=== PATIENT | female | born 1940 | race Caucasian/White ===

== ENCOUNTER 2022-07-22 12:48 | Emergency (ER) | payer MEDICARE, SELFPAY ==
[2022-07-22 12:50] VITALS: BP 126/107; PULSE 61; RESP 18; TEMP 36.2; O2SAT 92; BMI 25.2
--- NOTE | 2022-07-22 13:25 | EDS_ITS ---
HPI HPI - Fall History of Present Illness Chief Complaint: Fall Occured/Mechanism Mechanism/Context: Yes same level fall Pain/Injury Pain Location: head Quality of Pain: Aching Worsened by: Nothing Relieved by: Nothing Associated Symptoms Associated Symptoms: Positive for Loss of consciousness; Negative for Parasthesias, Weakness or Loss of function Length of loss of consciousness: Brief but unknown Narrative Narrative: Patient presents with a fall that occurred today. Patient states he was at the pharmacy picking up a prescription for her cough when she passed out. Patient states she felt lightheaded prior to falling. Patient states she hit the back of her head on a metal counter. Patient states that her only injury is her head. Patient describes it as aching. Patient states nothing makes it worse and nothing makes it better. Patient thinks she may have only been unconscious for a brief time. Patient denies any paresthesias or weakness. [facility] Medical History Non-smoker SVT (supraventricular tachycardia) Syncope Allergy/AdvReac Type Severity Reaction Status Date / Time No Known Allergies Allergy Verified 07/22/22 13:57 Surgical History History of hip replacement Social History Smoking Status: Never smoker ROS ROS ED Constitutional Constitutional ED: Denies chills or fever(s) Eyes Eyes: Denies blurry vision or change in vision ENT ENT ED: Denies rhinorrhea or sore throat Cardiovascular Cardiovascular: Denies chest pain or palpitations Respiratory/Chest Respiratory/Chest: Reports cough; Denies dyspnea Gastrointestinal Gastrointestinal: Denies nausea or vomiting Genitourinary Genitourinary ED: Denies dysuria or hematuria Musculoskeletal Musculoskeletal: Denies back pain or neck pain Integumentary Denies abscess or rash Neurologic Neurologic: Denies headache(s) or weakness Allergic/Immunologic Allergic/Immunologic ED: Denies mouth swelling or urticaria EXAM Physical Exam Const Vital Signs: 07/22/22 12:50 07/22/22 12:56 Temperature 97.2 F L Temperature Source Temporal Pulse Rate 61 Respiratory Rate 18 Respiratory Effort Normal Respiratory Depth Normal Respiratory Pattern Normal Blood Pressure 126/107 H Blood Pressure Mean 113 Pulse Ox 92 Oxygen Delivery Method Room Air Room Air Oxygen Flow Rate (L/min) 93 Positive well nourished and well developed General Appearance ED: well developed HEENT Reports moist mucous membranes HEENT Narrative: There is an 8 cm full-thickness curvilinear laceration over the scalp in the right posterior occipital area. There is moderate gapping of the wound margins. There is no active bleeding noted. There is no bony crepitance or step-off. There are no foreign bodies noted. Eyes PERRL and EOMs intact bilaterally Neck supple and no JVD Resp normal respiratory effort Auscultation: rhonchi throughout (There are few scattered rhonchi) Cardio regular rate, regular rhythm and no murmurs GI normal to inspection, nondistended, normoactive bowel sounds and non-tender Palpation: soft Extremity normal to inspection General Extremety ED: Negative for edema or tenderness General Extremity: Negative for edema Neuro oriented x3, CN's II-XII intact bilaterally, moves all extremities, no focal motor deficits and no sensory deficits noted Sensorium / Orientation: alert Motor Exam: strength 5/5 throughout Psych mental status grossly normal Skin no rashes or lesions noted MDM MDM MDM Narrative Medical decision making narrative: CT scan of the brain was obtained. There is no acute intracranial abnormality. There are chronic involutional changes noted. This was interpreted by the radiologist and reviewed by myself. Patient was given a tetanus booster. The wound was cleaned and irrigated with copious amounts normal saline. The wound was anesthetized 1% plain lidocaine locally. The wound was closed with 14 uma. Patient tolerated the procedure well. Patient was given head injury instructions. Patient was instructed to follow-up with her primary care physician in 5 to 7 days for wound recheck and staple removal. Patient understood and was agreeable with the plan. All questions were answered. Radiography Diagnostic Testing: Clinical Impression(s) from Imaging Studies Brain CT 07/22/22 13:28 IMPRESSION: Chronic involutional changes of the brain. Electronically Signed: Santos Santos MD at 13:57 EST , Procedures Lacerations Occipital scalp: Length: 8 cm Depth: Sub Q Shape: Linear Prep: Sterile Conditions and Chlorhexadine Laceration repair: Irrigated, Lidocaine, Local and Wound explored Irrigated (ml): 100 Number of Sutures/Uma: 14 Suture Information: Simple (Uma) Discharge Plan Triage Chief Complaint: Fall ED Provider: Matthew Schumacher Dx/Rx/DC Orders Clinical Impression: Laceration of occipital scalp, Syncope and collapse, Upper respiratory infection Instructions: ED Head Injury (Adult), ED Laceration Scalp Stitches or [place] Primary Care Provider: Luis Enrique Estrada Referrals: Luis Enrique Estrada MD [Primary Care Provider] - 5-7 Days Disposition Disposition: Home, Self Care
--- NOTE | 2022-07-22 13:28 | CT_ITS ---
STUDY: CT BRAIN WITHOUT CONTRAST REASON FOR EXAM: Female, 82 years old. Head injury and laceration following a fall. Loss of consciousness. RADIATION DOSAGE (If Supplied By Facility): CTDIvol = ( 47.06 ) mGy, DLP = ( 890.33 ) mGycm TECHNIQUE: Transaxial CT imaging of the brain was performed without administration of intravenous contrast material. Individualized dose optimization techniques were used for this CT. COMPARISON: No relevant priors. FINDINGS: Normal soft tissue structures. Normal calvarium. There is mild cerebral atrophy with widening of the extra-axial spaces and ventricular dilatation. There are areas of decreased attenuation within the white matter tracts of the supratentorial brain, consistent with microvascular disease changes. Normal basal ganglia and thalami. Normal brainstem. There is mild cerebellar atrophy. There is no intracranial hemorrhage. There are no findings of an acute ischemic infarction. Atherosclerotic calcification of the vertebral arteries and cavernous portions of the internal carotid arteries bilaterally. Normal visualized paranasal sinuses. CT/Brain/Head without Contrast IMPRESSION: Chronic involutional changes of the brain. Electronically Signed: Santos Santos MD at 13:57 EST ,
[2022-07-22] MEDS: Diphth,Pertuss(Acell),Tet Vac 0.5 ML Vial IM (13:57)
[2022-07-22] MEDS: Lidocaine 1% (20 ml mdv) 20 ML Vial INFILT (13:57)
[2022-07-22 15:53] VITALS: BP 160/76; PULSE 63; RESP 17; O2SAT 94
== END 2022-07-22 15:56 | disposition home or self-care (01) ==
PROVIDERS: Emergency Provider Emergency Medicine; PCP Family Medicine; Visit Provider Emergency Medicine
DX: S01.01XA Laceration without foreign body of scalp, initial encounter (principal); R55 Syncope and collapse; J06.9 Acute upper respiratory infection, unspecified; Z23 Encounter for immunization; W18.30XA Fall on same level, unspecified, initial encounter
CPT/HCPCS: 12004; 70450; 90715; 96372; 99284

== ENCOUNTER 2024-12-30 21:05 | Emergency (ER) | payer MEDICARE, SELFPAY ==
[2024-12-30 21:05] VITALS: BP 199/96; PULSE 80; RESP 18; TEMP 36.4; O2SAT 94; BMI 24.5
--- NOTE | 2024-12-30 21:19 | EX.ED.GENINJ ---
HPI <SALOME Crouch - Last Filed: 12/30/24 21:37> History of Present Illness Chief Complaint: Laceration Narrative Narrative: Patient presenting today with a laceration to her left fourth finger that she got this afternoon while gardening. She was using a garden tool and accidentally hit her finger causing the laceration. last tetanus was July 2022. She is right-handed and denies any other injury. She is not on blood thinners. PFSH <SALOME Crouch - Last Filed: 12/30/24 21:37> [facility] Medical History Non-smoker SVT (supraventricular tachycardia) Syncope Home Medications ?Medication ?Instructions ?Recorded ?Last Taken ?Type cephalexin 500 mg capsule 500 mg PO Q6 #40 CAPSULES 12/30/24 Unknown Rx Allergy/AdvReac Type Severity Reaction Status Date / Time No Known Allergies Allergy Verified 12/30/24 21:08 Surgical History History of hip replacement Social History household members: none Smoking Status: Never smoker ROS <SALOME Crouch - Last Filed: 12/30/24 21:37> ROS ED Constitutional Constitutional ED: Denies chills or fever(s) Cardiovascular Cardiovascular: Denies chest pain Respiratory/Chest Respiratory/Chest: Denies dyspnea Gastrointestinal Gastrointestinal: Denies abdominal pain, nausea or vomiting Musculoskeletal Musculoskeletal: Denies arthralgias or myalgias Integumentary Reports laceration EXAM <SALOME Crouch - Last Filed: 12/30/24 21:37> Physical Exam Const Vital Signs: 12/30/24 21:05 Temperature 97.6 F L Temperature Source Temporal Pulse Rate 80 Respiratory Rate 18 Blood Pressure 199/96 H Blood Pressure Mean 130 Pulse Ox 94 Oxygen Delivery Method Room Air Positive well nourished, well developed and no apparent distress General Appearance ED: well developed HEENT Reports normocephalic and head/scalp atraumatic Mouth ED: Yes moist mucous membranes normal Eyes PERRL and EOMs intact bilaterally Neck full ROM and supple Chest Wall inspection of chest normal Resp normal respiratory effort and clear to auscultation bilaterally Cardio regular rate and regular rhythm Back/Spine normal ROM and normal to inspection Extremity full ROM Extremity Narrative: 1 cm full-thickness linear laceration at the dorsal PIP joint of the left fourth finger, full flexion extension at the MCP, PIP, DIP joints of the left hand. Left radial pulse 2+, good cap refill, sensation intact. Neuro CN's II-XII intact bilaterally, moves all extremities, no focal motor deficits and no sensory deficits noted Sensorium / Orientation: awake and alert Psych mental status grossly normal and thought process normal Skin Skin Narrative: Laceration to the left fourth finger, otherwise no rashes or lesions noted. <Dr. Matthew Schumacher, - Last Filed: 12/30/24 21:50> Physical Exam Const Vital Signs: 12/30/24 21:05 Temperature 97.6 F L Temperature Source Temporal Pulse Rate 80 Respiratory Rate 18 Blood Pressure 199/96 H Blood Pressure Mean 130 Pulse Ox 94 Oxygen Delivery Method Room Air PROC <SALOME Crouch - Last Filed: 12/30/24 21:37> Procedures Lacerations Laceration: Length: 1 cm Depth: Sub Q Shape: Linear Prep: Chlorhexadine Laceration repair: Digital block, Irrigated and Lidocaine Number of Sutures/Uma: 2 Suture Information: Ethilon, Horizontal, Mattress and 4-0 MDM <SALOME Crouch Last Filed: 12/30/24 21:37> [facility] MDM Narrative Medical decision making narrative: Patient presenting today with a laceration to her left fourth finger that she got from a garden tool this afternoon. She has full range of motion to her finger, no tendon laceration. Given it is right over the PIP joint, I do feel that she would benefit from having this sutured. She tolerated procedure well. She will be placed on a course of Keflex to prevent infection. She has a finger splint that she can wear to prevent excessive bending of her finger. Recommended she have sutures removed in 7 days, wound care instructions were discussed with her. She will be discharged home in stable condition. <Dr. Matthew Schumacher DO - Last Filed: 12/30/24 21:50> [facility] History & Record Review Additional record(s) reviewed:: Prior ED visit Treatment and Re-Evaluation Narrative: I have personally performed a face to face assessment of the patient and have reviewed the TAR[facility] Note. I performed a substantive portion of the visit including all aspects of the following. My eason findings include: History: Patient presents with a laceration to her left ring finger that occurred today. Patient states she was doing some gardening and one of her gardening tools cut her left ring finger. Patient states she was wearing gloves. Patient states she cleaned the wound thoroughly. Patient states that the bleeding has been persistent. Patient denies any paresthesias or weakness. Patient thinks her last tetanus was within the last 5 years. Exam: Vital signs are stable except for an elevated blood pressure of 199/96. Patient is afebrile. Patient is in no acute distress. Skin is warm and dry. There is a 1 cm full-thickness linear laceration of the dorsal aspect of the left ring finger over the PIP joint. There is no foreign body noted. There are no tendon lacerations noted. There is mild bleeding noted. Strength is 5/5 in flexion and extension of the MP, PIP, and DIP joints of the left ring finger. Sensation was intact to light touch in all digits. Capillary refills less than 2 seconds in all digits. Medical Decision Making: Patient was advised of the need for laceration repair. Patient is agreeable with this. The wound was closed by the TARAH under my supervision. Patient was given a dose of Keflex here. Patient was given a prescription for Keflex. Patient was instructed to keep the wound clean and dry. Patient was instructed to follow-up with her primary care physician in 7 days for wound recheck and suture removal. Patient understood and was agreeable with the plan. All questions were answered. Discharge Plan Triage Chief Complaint: Laceration ED Midlevel Provider: Destiny Garcia ED Provider: Matthew Schumacher Dx/Rx/DC Orders Clinical Impression: Laceration of left ring finger w/o foreign body w/o damage to nail, Elevated blood pressure reading Instructions: ED Laceration, Hand: All Closures Prescriptions: New cephalexin 500 mg capsule 500 mg PO Q6 Qty: 40 0RF Primary Care Provider: Luis Enrique Estrada Referrals: Luis Enrique Estrada MD [[facility]] - 7 Days for suture removal Print Language: Ecu[place] Disposition Disposition: Home, Self Care Discharge Date/Time: 12/30/24 21:44
[2024-12-30] MEDS: Cephalexin 500 MG Capsule PO (21:41)
[2024-12-30] MEDS: Lidocaine 1% (20 ml mdv) 20 ML Vial 10 ML INFILT (21:41)
== END 2024-12-30 21:44 | disposition home or self-care (01) ==
LOC: ED 21:38
PROVIDERS: Emergency Provider Emergency Medicine; PCP Family Medicine; Visit Provider Emergency Medicine
DX: S61.215A Laceration without foreign body of left ring finger without damage to nail, initial encounter (principal); R03.0 Elevated blood-pressure reading, without diagnosis of hypertension; W27.1XXA Contact with garden tool, initial encounter; Y93.H2 Activity, gardening and landscaping; Z96.649 Presence of unspecified artificial hip joint
CPT/HCPCS: 99282